=== PATIENT | female | born 1940 | race Caucasian/White ===

== ENCOUNTER 2018-11-22 07:23 | Day surgery (SDC) | payer OTHER ==
[2018-11-21 13:04] VITALS: BMI 25.2
[2018-11-22 09:28] VITALS: TEMP 97.8
[2018-11-22 10:38] VITALS: BP 108/60; PULSE 80
--- NOTE | 2018-11-23 12:04 | PATH ---
Surgical Pathology Report Patient Name: JUNIOR MENDES [facility]. Rec. #: [id number] /Age/Gender: 1940 (Age: 78) / F Account: [id number] Location: [facility]-ENDOSCOPY Taken: 11/22/2018 Received: 11/22/2018 Reported: 11/23/2018 Physicians: Sony Wheeler M.D. Specimen(s) Received A: RIGHT COLON POLYPS B: DISTAL TRANSVERSE COLON POLYP C: RECTAL POLYP Clinical History Adenoma surveillance Postoperative diagnosis: Colon polyps Final Diagnosis A. RIGHT COLON POLYPS, POLYPECTOMY: TUBULAR ADENOMA, MULTIPLE FRAGMENTS. SEPARATE FRAGMENTS OF HYPERPLASTIC POLYP. B. DISTAL TRANSVERSE COLON POLYP, POLYPECTOMY: TUBULAR ADENOMA. C. RECTAL POLYP, POLYPECTOMY: HYPERPLASTIC POLYP. Electronically Signed Bj Nieves M.D. Gross Description A. Received in formalin, labeled "polyp right colon" are 6 domingo, irregular portions of soft tissue ranging from 0.2-0.3 cm. in greatest dimension. The specimens are submitted in toto in one cassette. B. Received in formalin, labeled "polyp distal transverse" are 3 domingo, irregular portions of soft tissue averaging 0.3 cm. in greatest dimension. The specimens are submitted in toto in one cassette. C. Received in formalin, labeled "polyp rectum" are 2 domingo, irregular portions of soft tissue measuring 0.2 and 0.4 cm. in greatest dimension. The specimens are submitted in toto in one cassette. /11/22/2018 saudi11/22/2018
== END 2018-11-22 10:24 | disposition home or self-care (01) ==
LOC: JASU-ENDO 07:23
PROVIDERS: ATTEND Internal Medicine Gastroenterology
PROC: 0DBL8ZX Excision of Transverse Colon, Via Natural or Artificial Opening Endoscopic, Diagnostic (ICD-10-PCS; 2018-11-22)
PROC: 0DBP8ZX Excision of Rectum, Via Natural or Artificial Opening Endoscopic, Diagnostic (ICD-10-PCS; 2018-11-22)
PROC: 0DBK8ZX Excision of Ascending Colon, Via Natural or Artificial Opening Endoscopic, Diagnostic (ICD-10-PCS; principal; 2018-11-22 08:30)
DX: Z12.11 Encounter for screening for malignant neoplasm of colon (principal); Z86.010 Personal history of colon polyps; K64.8 Other hemorrhoids; K57.30 Diverticulosis of large intestine without perforation or abscess without bleeding
CPT/HCPCS: 88305-TC

== ENCOUNTER 2022-12-29 04:23 | Day surgery (SDC) | payer BC, OTHER ==
[2022-12-27 14:03] VITALS: BMI 27.1
[2022-12-29 09:30] VITALS: TEMP 97.8
[2022-12-29 10:56] VITALS: BP 118/59; PULSE 78; RESP 18
== END 2022-12-29 11:20 | disposition home or self-care (01) ==
LOC: JASU-ENDO 04:23
PROVIDERS: ATTEND Internal Medicine Gastroenterology
PROC: 0DJD8ZZ Inspection of Lower Intestinal Tract, Via Natural or Artificial Opening Endoscopic (ICD-10-PCS; principal; 2022-12-29 09:00)
DX: Z12.11 Encounter for screening for malignant neoplasm of colon (principal); K57.30 Diverticulosis of large intestine without perforation or abscess without bleeding; K64.8 Other hemorrhoids; Z86.010 Personal history of colon polyps; I10 Essential (primary) hypertension